=== PATIENT | female | born 1970 | race Caucasian/White ===

== ENCOUNTER → 2019-12-07 09:46 | Outpatient (BNVA) | payer OTHER, SELFPAY | PROVIDERS: PCP Family Medicine | DX: Z20.828 Contact with and (suspected) exposure to other viral communicable diseases (principal) | CPT/HCPCS: 87635 ==

== ENCOUNTER 2021-01-02 10:12 | Outpatient (CLI) | payer OTHER, SELFPAY ==
--- NOTE | 2021-01-02 10:23 | US_ITS ---
WS: [id number] TRANSVAGINAL PELVIC ULTRASOUND HISTORY: ABNORMAL UTERINE BLEEDING COMPARISON: None available. Uterus: 7.9 cm x 4.8 cm x 3.5 cm. Normal size anteverted uterus. No fibroid or mass. Endometrium: 0.9 cm. Very small amount of fluid along the endometrial canal. No mass or polyps identi fied. Right ovary: 3.2 cm x 3.0 cm x 1.5 cm. Normal size and vascularity, no cystic or solid masses. Left ovary: 3.1 cm x 3.9 cm x 1.7 cm. Normal size ovary. Dominant LEFT ovarian follicle measures 2.2 x 1.6 x 1.5 cm. No solid mass. Physiologic free fluid in the cul-de-sac. US/US transvaginal [id number] IMPRESSION: Normal pelvic ultrasound. No explanation for patient's vaginal bleeding.
== END 2021-01-02 10:13 | disposition home or self-care (01) ==
PROVIDERS: PCP Family Medicine; Visit Provider Obstetrics & Gynecology
DX: N93.9 Abnormal uterine and vaginal bleeding, unspecified (principal)
CPT/HCPCS: 76830

== ENCOUNTER → 2021-05-25 11:25 | Outpatient (BNVA) | payer OTHER, SELFPAY | PROVIDERS: PCP Family Medicine; Visit Provider Nurse Practitioner Family | DX: M79.671 Pain in right foot (principal); M79.674 Pain in right toe(s) | CPT/HCPCS: 73630; 84550 ==

== ENCOUNTER → 2025-03-25 09:00 | Outpatient (BNVA) | payer OTHER, SELFPAY | PROVIDERS: PCP Nurse Practitioner Family; Visit Provider Nurse Practitioner Family | DX: Z01.89 Encounter for other specified special examinations (principal); R53.83 Other fatigue; Z83.49 Family history of other endocrine, nutritional and metabolic diseases; Z68.29 Body mass index [BMI] 29.0-29.9, adult | CPT/HCPCS: 80053; 80061; 82306; 82607; 84439; 84443; 84480; 85025 ==